=== PATIENT | male | born 1980 | race Caucasian/White ===

== ENCOUNTER 2019-03-15 07:16 | Inpatient (IN) ==
--- NOTE | 2019-02-04 11:58 | Anesthesiology Consultation ---
Date of Service February 04, 2019 Assessment & Plan (1) Encounter for pre-operative examination: PCP Clearance 02/01 = "At his baseline, has good exercise capacity. No further cardiac workup is necessary before surgery on February 11." Pt prescribed Prednisone and Z pac for "reactive airway disease with wheezing" (pre-op CXR showed no active disease) *POSSIBLE DIFFICULT INTUBATION BASED ON EXAM--SMALL ORAL OPENING, MALLAMPATI IV* Chart Review Chart Review: Acceptable Risk for Surgery and Patient seen in Pre Admission Testing Teaching & Discussion Instructed NPO after midnight before surgery, except medications with 15 cc of water. Medication instructions provided according to the PAT guidelines. History Surgery Operation Date: 02/11/19 12:15 Proposed Procedures p L5-S1 Decompression and Fusion, Spinal Cord Monitoring - Timur Mathew DO Height/Weight Height: 5 ft 8 in Weight: 103.5 kg Allergies Allergy/AdvReac Type Severity Reaction Status Date / Time haloperidol [From Haldol] Allergy Severe TONGUE Verified 01/31/19 13:16 SWELLING paliperidone [From Invega] Allergy Severe TONGUE Verified 01/31/19 13:16 SWELLING/INVOLUNTARY MOVEMENTS Medications Home Medications Medication Instructions Recorded Confirmed Last Taken Cbd Oil 1,500 mg PO QAM 01/31/19 01/31/19 Unknown atorvastatin 10 mg PO QAM 01/31/19 01/31/19 Unknown baclofen 15 mg PO BID 01/31/19 01/31/19 Unknown cetirizine [Zyrtec] 10 mg PO QAM 01/31/19 01/31/19 Unknown clozapine 50 mg PO BID 01/31/19 01/31/19 Unknown clozapine 300 mg PO HS 01/31/19 01/31/19 Unknown gabapentin 200 mg PO BID 01/31/19 01/31/19 Unknown gabapentin 300 mg PO HS 01/31/19 01/31/19 Unknown hydroxyzine HCl 25 mg PO BID 01/31/19 01/31/19 Unknown melatonin 3 mg PO HS 01/31/19 01/31/19 Unknown metoclopramide HCl 5 mg PO TID 01/31/19 01/31/19 Unknown metoprolol succinate 25 mg PO QAM 01/31/19 01/31/19 Unknown nortriptyline 20 mg PO HS 01/31/19 01/31/19 Unknown omeprazole 40 mg PO BID 01/31/19 01/31/19 Unknown paroxetine HCl 30 mg PO QAM 01/31/19 01/31/19 Unknown trazodone 50 mg PO HS 01/31/19 01/31/19 Unknown Past Medical History Medical History Anxiety Depression GERD (gastroesophageal reflux disease) Hyperlipidemia Hypertension Inappropriate sinus tachycardia On Metoprolol Insomnia Obesity Peripheral neuropathy Schizoaffective disorder, bipolar type Sleep apnea Noncompliant with CPAP 2/2 claustrophobia Exercise / Class Metabolic Activity III < 4 Walking/Shop/Light housework (Denies CP or SOB with ambulation.) Past Family History Family History Grandmother (Paternal) Family history of diabetes mellitus Past Surgical History Surgical History History of carpal tunnel release RT/LEFT History of colonoscopy History of esophagogastroduodenoscopy (EGD) History of tonsillectomy History of tooth extraction Hx of hemorrhoidectomy Past Anesthesia History No Hx of Anesthesia Complications and No Family Hx of Anesthesia Complications History of PONV No Hx of PONV and Hx of Motion Sickness Social History Smoking Status: Former smoker tobacco type: cigarettes Do You Dip or Chew Tobacco: No Smoking End Date: 7 YEARS AGO Hx Alcohol Use: No Hx Substance Use: No substance use type: does not use Review of Systems Pt denies any recent chest pain, shortness of breath, palpitations, fever. +cough/URI, currently on antibiotic and steroid taper for this from PCP. Physical Exam Vital Signs BP: 101/70 P: 108 bpm SPO2: 95% RA T: 97.5 F R: 20 Constitutional Consistent with schizoaffective diagnosis. ENMT Mouth: + chipped teeth and + small oral opening; no dental restorations and no loose teeth Thyromental Distance: > or= 3.5 Finger Breadths (4) Mallampati Class: IV Neck normal visual inspection and + facial hair (short meza and mustache, pt advised to keep trimmed away from mouth); neck extension not limited Respiratory normal respiratory effort Auscultation: lungs clear to auscultation bilaterally Cardiovascular Rate/Rhythm: regular rhythm and + tachycardic Heart Sounds: no murmur Extremities: no edema Testing Laboratory Results 02/04/19 11:45 02/04/19 11:44 02/04/19 02/04/19 02/04/19 11:45 11:45 Unknown PT 9.8 INR 1.0 APTT 23.7 Urine Color Yellow Urine Appearance Clear Urine pH 6.0 Ur Specific [place] 1.020 Urine Protein Negative Urine Glucose (UA) Negative Urine Ketones Negative Urine Nitrite Negative Ur Leukocyte Esterase Negative Blood Type A Negative Antibody Screen NEGATIVE Electrocardiogram Date: 10/14/18 Findings: + ST @ (103) Otherwise normal EKG. Chest X-Ray Date: 02/04/19 Cardiomediastinal and hilar silhouettes are within normal limits. Minimal linear right perihilar and left basilar opacities. No pneumothorax, pleural effusion or overt pulmonary edema. Mild convex left curvature of the mid to lower thoracic spine. IMPRESSION: 1. No acute process. 2. Minimal right perihilar and left basilar opacities suggest atelectasis /scarring. Echocardiogram Date: 10/04/17 EF: 68% Examination is adequate to evaluate the referral indication. Left ventricular cavity size is normal. LV wall thickness is normal. Right ventricular cavity is normal in size and function. Left atrium is normal size. Left ventricular diastolic function is normal. No significant valvular disease. No pericardial effusion.
[2019-02-04 11:59] LABS: Basophils # (auto) 0.02 K/uL (0-0.2); Basophils % (auto) 0.3 %; Hematocrit (blood only) 39.8 % (42-52); Hemoglobin 13.9 g/dL (14.0-18.0); Immature Granulocytes # (auto) 0.04 K/uL (0.00-0.02); Immature Granulocytes % (auto) 0.5 %; Lymphocytes # (auto) 1.87 K/uL (1.2-3.4); Lymphocytes % (auto) 24.8 %; Mean Corpuscular Hgb Conc 34.9 g/dL (32-36); Mean Corpuscular Volume 84.7 fL (80-100); Mean Platelet Volume 11.8 fL (7.4-10.4); Monocytes # (auto) 0.54 K/uL (0.11-0.59); Monocytes % (auto) 7.2 %; Neutrophils # (auto) 5.08 K/uL (1.4-6.5); Neutrophils % (auto) 67.2 %; Platelet Count 192 K/uL (130-400); RDW Coefficient of Variation 12.7 % (11.5-14.5); White Blood Count 7.55 K/uL (4.8-10.8)
--- NOTE | 2019-02-04 12:01 | PAT Medication Instructions ---
Medication Instructions Date of Service February 04, 2019 Home Medications Cbd Oil 1,500 mg PO QAM atorvastatin 10 mg PO QAM baclofen 15 mg PO BID cetirizine [Zyrtec] 10 mg PO QAM clozapine 50 mg PO BID clozapine 300 mg PO HS gabapentin 200 mg PO BID gabapentin 300 mg PO HS hydroxyzine HCl 25 mg PO BID melatonin 3 mg PO HS metoclopramide HCl 5 mg PO TID metoprolol succinate 25 mg PO QAM nortriptyline 20 mg PO HS omeprazole 40 mg PO BID paroxetine HCl 30 mg PO QAM trazodone 50 mg PO HS DO NOT take the morning of surgery Cbd Oil 1,500 mg PO QAM baclofen 15 mg PO BID cetirizine [Zyrtec] 10 mg PO QAM metoclopramide HCl 5 mg PO TID Take morning of surgery With a small sip of water, OTHERWISE NOTHING TO EAT OR DRINK AFTER MIDNIGHT: atorvastatin 10 mg PO QAM clozapine 50 mg PO BID gabapentin 200 mg PO BID hydroxyzine HCl 25 mg PO BID metoprolol succinate 25 mg PO QAM omeprazole 40 mg PO BID paroxetine HCl 30 mg PO QAM Take evening before surgery baclofen 15 mg PO BID clozapine 50 mg PO BID clozapine 300 mg PO HS gabapentin 200 mg PO BID gabapentin 300 mg PO HS hydroxyzine HCl 25 mg PO BID melatonin 3 mg PO HS metoclopramide HCl 5 mg PO TID nortriptyline 20 mg PO HS omeprazole 40 mg PO BID trazodone 50 mg PO HS Other Notes If you have any questions please call us at [phone] or [phone] or [phone] or [phone]
[2019-02-04 12:14] LABS: Partial Thromboplastin Ratio 0.9; Partial Thromboplastin Time 23.7 Seconds (21.0-31.0); Prothrombin Time 9.8 Seconds (9.0-12.0)
--- NOTE | 2019-02-04 12:32 | XRay Report ---
XR chest Pre-admission PA/Lat HISTORY: 38 years-old Male pat preoperative exam. No acute chest complaints COMPARISON: None available TECHNIQUE: PA and lateral views of the chest FINDINGS: Cardiomediastinal and hilar silhouettes are within normal limits. Minimal linear right perihilar and left basilar opacities. No pneumothorax, pleural effusion or overt pulmonary edema. Mild convex left curvature of the mid to lower thoracic spine. IMPRESSION: 1. No acute process. 2. Minimal right perihilar and left basilar opacities suggest atelectasis/scarring. The above report was generated using voice recognition software. It may contain grammatical, syntax o r spelling errors. Electronically signed by: Pranav Clifton M.D. 02/04/2019 12:30 PM
[2019-02-04 14:40] LABS: Appearance Urine Clear (Clear); Bilirubin Urine Negative (Negative); Blood Urine Negative (Negative); Color Urine Yellow; Glucose Urine UA Negative (Negative); Ketones Urine Negative (Negative); Leukocyte Esterase Urine Negative (Negative); Nitrite Urine Negative (Negative); Protein Urine Negative (Negative); Urobilinogen Urine Negative (Negative)
[2019-02-04 14:42] LABS: BUN Creatinine Ratio 10.3 (10-20); Calcium 8.7 mg/dl (8.5-10.1); Creatinine Clr Calc Pharmacy 88.1 ml/min; Est GFR (African American) 79.1; Est GFR (Non-African American) 68.3; Potassium 3.6 mmol/L (3.5-5.1)
[~2019-03-15 07:16] MED LIST: ACETAMINOPHEN 500 MG TAB PO SCH; ATROPINE SULFATE 0.1 MG/ML 10ML SYR IV PRN; CEFAZOLIN 1000MG 1,000 MG/7.5 ML SYR IV SCH; CEFAZOLIN 2000MG 2,000 MG/15 ML SYR IV SCH; CeleBREX 200 MG CAP PO SCH; GABAPENTIN 300 MG x 3 PO SCH; GABAPENTIN 600 MG DOSE PO SCH; LR 15ML/HR IV SCH; ONDANSETRON INJ 2 MG/ML 2 ML VIAL IV PRN; ePHEDrine sulfate 50 MG/ML AMP IV PRN
[2019-03-15] MEDS ORDERED: PROPOFOL IV EMULSION 10 MG/ML 20 ML VIAL IV ONE (08:26)
[2019-03-15] MEDS ORDERED: DEXAMETHASONE SOD INJ 4 MG/ML VIAL ONE (08:26)
[2019-03-15] MEDS ORDERED: ONDANSETRON INJ 2 MG/ML 2 ML VIAL ONE (08:26)
[2019-03-15] MEDS ORDERED: MIDAZOLAM HCL 1 MG/ML 2ML VIAL ONE (08:26)
[2019-03-15] MEDS ORDERED: NEOSTIGMINE METHYLSULFATE 1 MG/ML 10ML VIAL ONE (08:26)
[2019-03-15] MEDS ORDERED: HYDROmorphone INJ 2 MG/ML SYR/VIAL ONE (08:26)
[2019-03-15] MEDS ORDERED: fentaNYL citrate 100 MCG/2 ML VIAL ONE (08:26)
[2019-03-15] MEDS ORDERED: ROCURONIUM BROMIDE 10 MG/ML 5 ML VIAL ONE (08:26)
[2019-03-15] MEDS ORDERED: GLYCOPYRROLATE 0.2 MG/ML VIAL ONE (08:26)
[2019-03-15] MEDS ORDERED: LIDOCAINE HCL 2% 2 ML VIAL/AMP(20MG/ML) INFIL ONE (08:26)
--- NOTE | 2019-03-15 09:11 | History & Physical Bridge Note ---
Date of Service March 15, 2019 History & Physical Bridge Note I have examined the patient, reviewed the History & Physical and in the interval since the performance of the History & Physical I have noted the following changes of clinical significance: no changes noted
--- NOTE | 2019-03-15 09:16 | History & Physical Report ---
Date of Service March 15, 2019 Assessment & Plan (1) Spinal stenosis, lumbar region with neurogenic claudication: L5-S1 decompression and fusion Present on Admission?: Yes History of Present Illness Chief Complaint: Back and leg pain Primary Care Provider: Dangelo Felix MD Is a 38-year-old male who presents with chronic persistent back and leg pain after failing extensive course of nonoperative care is here for surgical intervention. Allergies Allergy/AdvReac Type Severity Reaction Status Date / Time haloperidol [From Haldol] Allergy Severe TONGUE Verified 03/15/19 07:57 SWELLING paliperidone [From Invega] Allergy Severe TONGUE Verified 03/15/19 07:57 SWELLING/INVOLUNTARY MOVEMENTS Home Medications Home Medications Medication Instructions Recorded Confirmed Type Cbd Oil 1,500 mg PO QAM 01/31/19 03/15/19 History atorvastatin 10 mg PO QAM 01/31/19 03/15/19 History baclofen 15 mg PO BID 01/31/19 03/15/19 History cetirizine [Zyrtec] 10 mg PO QAM 01/31/19 03/15/19 History clozapine 50 mg PO BID 01/31/19 03/15/19 History clozapine 300 mg PO HS 01/31/19 03/15/19 History gabapentin 200 mg PO BID 01/31/19 03/15/19 History gabapentin 300 mg PO HS 01/31/19 03/15/19 History hydroxyzine HCl 25 mg PO BID 01/31/19 03/15/19 History melatonin 3 mg PO HS 01/31/19 03/15/19 History metoclopramide HCl 5 mg PO TID 01/31/19 03/15/19 History metoprolol succinate 25 mg PO QAM 01/31/19 03/15/19 History nortriptyline 20 mg PO HS 01/31/19 03/15/19 History omeprazole 40 mg PO BID 01/31/19 03/15/19 History paroxetine HCl 30 mg PO QAM 01/31/19 03/15/19 History trazodone 50 mg PO HS 01/31/19 03/15/19 History Past Med/Surg History Medical History Anxiety Depression GERD (gastroesophageal reflux disease) Hyperlipidemia Hypertension Inappropriate sinus tachycardia On Metoprolol Insomnia Obesity Peripheral neuropathy Schizoaffective disorder, bipolar type Sleep apnea Noncompliant with CPAP 2/2 claustrophobia Surgical History History of carpal tunnel release RT/LEFT History of colonoscopy History of esophagogastroduodenoscopy (EGD) History of tonsillectomy History of tooth extraction Hx of hemorrhoidectomy Family History Grandmother (Paternal) Family history of diabetes mellitus Social History Preferred Language: Georgian Communication Ability: Effective Php Consultant Required: No Beliefs That Will Affect Care: None Current Living Situation: Significant Other Other Information That Helps Us Care for You: No Feels Safe at Home: Yes Safety Concerns: Feels Safe At This Time Smoking Status: Former smoker Tobacco Type: cigarettes Do You Dip or Chew Tobacco: No Smoking End Date: 7 YEARS AGO Second Hand Exposure: No Tobacco Cessation Education Requested by Patient: No Hx Alcohol Use: No Hx Substance Use: No Physical Exam Physical Exam: Patient is alert and oriented neurologically intact. Results & Data Vital Signs (Past 12 Hours) Vital Signs Temp Pulse Resp BP Pulse Ox 03/15/19 08:05 36.8 C 96 H 20 137/92 99
[2019-03-15] MEDS ORDERED: BUPIVACAINE/EPINEPHRINE 0.5% MPF 1:200,000 30 ML VIAL ONE (09:42)
[2019-03-15] MEDS ORDERED: BACITRACIN INJ 50,000 UNIT VIAL ONE (09:43)
[2019-03-15] MEDS ORDERED: FLOSEAL HEMOSTATIC MATRIX 10ML TOP ONE (11:31)
--- NOTE | 2019-03-15 11:34 | Operative Report ---
Post Operative Report Pre & Post Diagnosis Operation Date: 03/15/19 09:55 Pre-Op Diagnosis: Spinal stenosis, lumbar region with neurogenic claudication Post-Op Diagnosis: Spinal stenosis, lumbar region with neurogenic claudication Procedure Operation Date: 03/15/19 09:55 Actual Procedures #1 lumbar decompression medial facetectomies foraminotomies bilaterally at L5- S1. #2 posterior spinal fusion L5-S1 per #3 placement posterior instrumentation L5-S1. #4 interbody fusion L5-S1. #5 placement of peek cage 10 x 26 mm at L5- S1 per #6 placement of local autograft in the posterior lateral gutters. #7 placement infuse collagen sponge combined with master graft in the posterior lateral gutters and ostial amp in the interbody space. Surgeon Timur Mathew, DO Velvet Steamer Eric Parada Estimated Blood Loss 100 Findings See Below Patient is 5 foot 8 inches tall 102 kg with a BMI of 34. The patient's body habitus created significant technical difficulty throughout the procedure adding at least 40% increase in operative time. Specimens None Indications Patient presents with chronic persistent back and leg pain after failing extensive course of nonoperative care he like to undergo the above-mentioned procedure. Description of Procedure Patient was met with identified and informed consent obtained. He was then taken to the operative suite underwent ablation placed in a prone position the Yomi table on top of the Sundeep frame. All bony prominences well-padded eyes inspected to ensure no external pressure placed upon the peer at this point the lumbar spine was prepped and draped in the normal sterile fashion. Sharp dissection with the assistance of Bovie cautery was performed down to and exposing the lamina and transverse process of L5 and the sacral ala bilaterally. From a caudal to cephalad fashion complete laminectomy of L5 was performed including bilateral medial facetectomies foraminotomies. Pedicle screws were then placed in L5 and S1 levels bilaterally with assistance of fluoroscopy and the appropriate size ezequiel placed. Through a transforaminal portion left complete discectomy was performed in plate graded to subcortical bleeding bone and a 10 x 26 mm peek cage filled with ostium bone graft tapped in position. Rods and then locked in final position bilaterally. The transverse processes of L5 and sacral ala bur to subcortical bleeding bone. Infuse collagen sponge mass graft local autograft placed in the posterior lateral gutters. 15 round MILA drain inserted. The incision was then closed with 1 Vicryl in the fascia 2-0 Vicryl subcutaneously and 4 Monocryl for final skin closure. Steri-Strip sterile dressings placed. Patient will continue PACU stable disc. Please note Eric Parada present throughout the entire procedure involved in patient positioning complex portions of the surgery and final skin closure. Lastly spinal cord monitoring was utilized that procedure no changes noted. I attest to the content of the Intraoperative Record and any orders documented therein. Any exceptions are noted below.
--- NOTE | 2019-03-15 11:35 | Fluoroscopy Report ---
FL lumbar spine 2-3V CLINICAL HISTORY: L5-S1 decompression and fusion. COMPARISON STUDY: None. FLUOROSCOPY TIME: 18 seconds. FLUOROSCOPIC IMAGES: 2. FINDINGS: These images demonstrate an L5-S1 discectomy with interbody spacer placement. There is a po sterior decompression with bilateral pedicle screws at the L5 and S1 levels. Interconnecting rods are present. IMPRESSION: Expected findings following L5-S1 discectomy, posterior decompression and bilateral pedi molly screw fusion. Electronically signed by: Mario Fitzgerald M.D. 03/15/2019 11:33 AM
[2019-03-15] MEDS: fentaNYL citrate 100 MCG/2 ML VIAL IV PRN ×4 (12:19→12:34)
[2019-03-15] MEDS ORDERED: HYDROmorphone INJ 1 MG/ML SYRINGE ONE (12:38)
[2019-03-15] MEDS ORDERED: HYDROmorphone INJ 0.5 MG/0.5 ML SYR IV PRN ×2 (12:45→13:39)
--- NOTE | 2019-03-15 13:35 | Anesthesiology Progress Note ---
Date of Service March 15, 2019 Anesthesia Post Procedure Vital Signs Vital Signs: Temp Pulse Resp BP Pulse Ox 03/15/19 13:00 36.3 C L 106 H 12 133/93 94 03/15/19 12:50 104 H 16 140/96 95 03/15/19 12:40 104 H 16 136/104 H 95 03/15/19 12:30 110 H 16 146/100 H 94 03/15/19 12:20 104 H 15 133/98 98 03/15/19 12:10 104 H 12 130/85 99 03/15/19 12:00 98 H 15 137/84 96 03/15/19 11:52 36.4 C L 102 H 16 131/89 96 03/15/19 08:05 36.8 C 96 H 20 137/92 99 Pain Intensity Lower Back: Pain Intensity: 6 Transfer of Care Handoff Completed per policy Notes Mental Status: alert / awake / arousable and participated in evaluation Patient Amnestic to Procedure: Yes Nausea / Vomiting: adequately controlled Pain: adequately controlled Airway Patency, RR, SpO2: stable & adequate BP & HR: stable & adequate Hydration State: stable & adequate Anesthetic Complications: no major complications apparent and Pt Satisfied with anesthetic care
[2019-03-15] MEDS ORDERED: LORazepam 0.5 MG/1 ML VIAL IV PRN (13:39)
[2019-03-15] MEDS ORDERED: ACETAMINOPHEN 500 MG TAB PO PRN (13:39)
[2019-03-15] MEDS ORDERED: ONDANSETRON INJ 2 MG/ML 2 ML VIAL IV PRN (13:39)
[2019-03-15] MEDS ORDERED: ACETAMINOPHEN 1,000 MG/100 ML VIAL IV PRN (13:39)
[2019-03-15] MEDS ORDERED: DO NOT ADMINISTER FLU VACCINE PRN (13:39)
[2019-03-15] MEDS ORDERED: METOCLOPRAMIDE HCL INJ 5 MG/ML 2 ML VIAL IV PRN (13:39)
[2019-03-15] MEDS ORDERED: BISACODYL 10 MG SUPP PR PRN (13:39)
[2019-03-15] MEDS ORDERED: PROMETHAZINE HCL 12.5 MG in SODIUM CHLORIDE 0.9% 50 ML IV PRN (13:39)
[2019-03-15] MEDS ORDERED: DO NOT ADMINISTER PNEUMOCOCCAL VACCINE PRN (13:39)
[2019-03-15] MEDS ORDERED: FAMOTIDINE 20 MG TAB PO PRN (13:39)
[2019-03-15] MEDS ORDERED: SOD PHOSPHATE/SOD BIPHOSPHATE ENEMA 132 ML BTL PR PRN (13:39)
[2019-03-15] MEDS ORDERED: MAGNESIUM HYDROXIDE SUSP 30 ML UDC PO PRN (13:39)
[2019-03-15] MEDS ORDERED: ONDANSETRON 4 MG TAB PO PRN (13:39)
[2019-03-15] MEDS ORDERED: LORazepam 0.5 MG TAB PO PRN (13:39)
[2019-03-15] MEDS ORDERED: ALUMINUM/MAGNESIUM SUSP 30 ML UDC PO PRN (13:39)
[2019-03-15] MEDS: LACTATED RINGER'S 1,000 ML IV SCH ×2 (15:01→21:34)
[2019-03-15] MEDS: GABAPENTIN 100 MG CAP PO SCH (15:03)
[2019-03-15] MEDS: KETOROLAC 30 MG/ML VIAL IV SCH ×2 (15:04→21:44)
[2019-03-15] MEDS: METOCLOPRAMIDE HCL 5 MG TABLET PO SCH ×2 (15:04→21:43)
--- NOTE | 2019-03-15 15:56 | Consultation ---
Date of Consultation March 15, 2019 Assessment & Plan (1) Spinal stenosis, lumbar region with neurogenic claudication: S/P Lumbar Decompression and Fusion L5-S1 POD #0, by Dr. Mathew tolerated procedure well EBL 100 ml pain/wound per ortho therapy and activity as directed by ortho incentive spirometry encouraged follow H/H (2) Hyperlipidemia: Continue statin (3) Inappropriate sinus tachycardia: Continue metoprolol, remains in sinus tach (4) Schizoaffective disorder, bipolar type: Mood is stable Continue Clozaril, Paxil, nortriptyline wbc wnl (5) Insomnia: continue trazodone (6) GERD (gastroesophageal reflux disease): Continue PPI (7) DVT prophylaxis: SCDS/TEDS, per ortho Disposition: Per attending Follow up: PCP Dr. Felix Patient was seen and examined in collaboration with Dr. Jacobson, please see add endum Thank you for this consultation. We will follow the patient with you during their hospital stay. You can reach a member of the [facility] Team 27/03 via pager @ [phone]. Supervising Physician Co-Signing Physician Notes Patient was seen and evaluated with Lev[facility]. Patient is complaining of back pain, but tolerable. Denies any fever, chills per Exam Generalawake, alert, oriented x2, not in acute distress Lungsclear, no wheezing, rhonchi HeartS1-S2 normal Backstatus post surgery with drain present Extremitiesno edema Assessment/plan Status post lumbar decompression and fusion L5-S1 Indicationspinal stenosis, lumbar region with neurogenic claudication Postoperative day 0 Pain/wound management per Ortho PT/OT per Ortho H&H monitoring Incentive spirometry encouraged Hyperlipidemia Continue statin Inappropriate sinus tachycardia Continue metoprolol Schizoaffective disorder, bipolar Continue Clozaril, Paxil, nortriptyline Insomnia Continue trazodone GERD Continue with PPI DVT prophylaxis SCD/teds Per Ortho Disposition Per primary team Agree with management and plan of Levar History of Present Illness Requesting Physician: Dr. Mathew Reason for Consultation: Postop medical management Attending Physician: Timur Mathew DO History of Present Illness This is a 38-year-old male who has a known history of schizoaffective disorder, HLD, inapprop sinus tachycardia, obesity, history of cannabis and alcohol use, fatty liver disease, DANNY noncompliant with CPAP, insomnia,who presents to [facility] for elective lumbar procedure. His GF and father are at bedside. Patient has chronic low back pain with radiculopathy which he failed nonoperative outpatient treatment. He underwent lumbar decompression fusion L5-S1 by Dr. Mathew. Tolerated procedure well and offers no acute concerns except for mild incisional low back pain. Denies any radicular pain or numbness or tingling. Denies any fever, chills, sweats, chest pain, shortness of breath, postop nausea or vomiting, abdominal pain. Denies any change in bowel or urinary habits prior to procedure. Allergies Allergy/AdvReac Type Severity Reaction Status Date / Time haloperidol [From Haldol] Allergy Severe TONGUE Verified 03/15/19 07:57 SWELLING paliperidone [From Invega] Allergy Severe TONGUE Verified 03/15/19 07:57 SWELLING/INVOLUNTARY MOVEMENTS Home Medications Home Medications Medication Instructions Recorded Confirmed Type Cbd Oil 1,500 mg PO QAM 01/31/19 03/15/19 History atorvastatin 10 mg PO QAM 01/31/19 03/15/19 History baclofen 15 mg PO BID 01/31/19 03/15/19 History cetirizine [Zyrtec] 10 mg PO QAM 01/31/19 03/15/19 History clozapine 50 mg PO BID 01/31/19 03/15/19 History clozapine 300 mg PO HS 01/31/19 03/15/19 History gabapentin 200 mg PO BID 01/31/19 03/15/19 History gabapentin 300 mg PO HS 01/31/19 03/15/19 History hydroxyzine HCl 50 mg PO TID 01/31/19 03/15/19 History melatonin 3 mg PO HS 01/31/19 03/15/19 History metoclopramide HCl 5 mg PO TID 01/31/19 03/15/19 History metoprolol succinate 25 mg PO QAM 01/31/19 03/15/19 History nortriptyline 20 mg PO HS 01/31/19 03/15/19 History omeprazole 40 mg PO BID 01/31/19 03/15/19 History paroxetine HCl 30 mg PO QAM 01/31/19 03/15/19 History trazodone 100 mg PO HS 01/31/19 03/15/19 History dicyclomine 10 mg PO BID 03/15/19 03/15/19 History Patient History Family History Grandmother (Paternal) Family history of diabetes mellitus Social History Preferred Language: [place] Citizen Communication Ability: Effective It Program Manager Required: No Beliefs That Will Affect Care: None Current Living Situation: Significant Other Other Information That Helps Us Care for You: No Feels Safe at Home: Yes Safety Concerns: Feels Safe At This Time Smoking Status: Former smoker Tobacco Type: cigarettes Do You Dip or Chew Tobacco: No Smoking End Date: 7 YEARS AGO Second Hand Exposure: No Tobacco Cessation Education Requested by Patient: No Hx Alcohol Use: No Hx Substance Use: No Review of Systems Review of Systems: As noted per HPI, 10 systems reviewed and negative unless noted above. Physical Exam Physical Exam: Gen: WD/WN, M, NAD, sitting up in bed, pleasant, conversing easily Head: Normocephalic, Atraumatic Eyes: Sclera normal, no conjunctival injection, PERRLA, EOMI ENT: Gross hearing intact, normal pharynx, mucous membranes moist Neck: supple, no adenopathy, No JVD, no bruit, Resp: Clear to auscultation b/l, no wheeze, rales, rhonchi. Normal insp/exp effort, no accessory muscle use CV: regular rate, regular rhythm, no murmur, rub, gallop, or ectopy Abd: +BS x 4, soft, nontender, nondistended Musculoskeletal: moves extremities active rom x 4, strength intact, good water chemist strength, Lumbar dressing CDI, MILA drain with serosanginous drainage Extremities: No edema bilaterally Skin: warm, moist, no rash, negative turgor, cap refill < 2sec Neuro: Alert and oriented x 3, speech normal, good mood/affect, cran nerve 2-12 intact grossly : deferred Results & Data Vital Signs (Past 12 Hours) Vital Signs Temp Pulse Pulse Resp BP Pulse Ox 03/15/19 15:20 36.8 C 110 H 18 134/93 94 03/15/19 14:26 37.1 C 114 H 16 129/106 H 94 03/15/19 13:48 37 C 111 H 16 129/87 96 03/15/19 13:00 36.3 C L 106 H 12 133/93 94 03/15/19 12:50 104 H 16 140/96 95 03/15/19 12:40 104 H 16 136/104 H 95 03/15/19 12:30 110 H 16 146/100 H 94 03/15/19 12:20 104 H 15 133/98 98 03/15/19 12:10 104 H 12 130/85 99 03/15/19 12:00 98 H 15 137/84 96 03/15/19 11:52 36.4 C L 102 H 16 131/89 96 03/15/19 08:05 36.8 C 96 H 20 137/92 99 Laboratory Results Preop lab work CBC: WBC 7.53, hemoglobin at 13.9, hematocrit 39.8, platelet 192 BMP: Sodium 140, K3.6, chloride 106, CO2 29, BUN 13, creatinine 1.30, gluc 110 Diagnostic Findings CXR: IMPRESSION: 1. No acute process. 2. Minimal right perihilar and left basilar opacities suggest atelectasis/s carring. Medications Administered Gabapentin (Neurontin) 200 mg PO 0900,1500 [facility] Stop: 04/14/19 14:59 Last Admin: 03/15/19 15:03 Dose: 200 mg Documented by: [id number] Lactated Ringer's (Lr) 1,000 mls @ 150 mls/hr IV .Q6H40M [facility] Stop: 04/14/19 13:38 Last Admin: 03/15/19 15:01 Dose: 150 mls/hr Documented by: [id number] Ketorolac Tromethamine (Toradol) 30 mg IV Q6H [facility] Stop: 03/16/19 09:01 Last Admin: 03/15/19 15:04 Dose: 30 mg Documented by: [id number] Metoclopramide HCl (Reglan) 5 mg PO TID [facility] Stop: 04/14/19 13:59 Last Admin: 03/15/19 15:04 Dose: 5 mg Documented by: [id number] Discontinued Medications Acetaminophen (Tylenol) 1,000 mg PO PREOP [facility] Stop: 03/15/19 18:00 Last Admin: 03/15/19 08:35 Dose: 1,000 mg Documented by: [id number] Bacitracin (Bacitracin) Confirm Administered Dose 50,000 units .ROUTE .STK-MED ONE Stop: 03/15/19 09:44 Last Admin: 03/15/19 10:58 Dose: 50,000 units Documented by: [id number] Bupivacaine HCl/Epinephrine Bitart (Sensorcaine/Epinephrine 0.5% Mpf 1:200,000) Confirm Administered Dose 30 ml .ROUTE .STK-MED ONE Stop: 03/15/19 09:43 Last Admin: 03/15/19 10:58 Dose: 20 ml Documented by: [id number] Celecoxib (Celebrex) 200 mg PO PREOP [facility] Stop: 03/15/19 18:00 Last Admin: 03/15/19 08:35 Dose: 200 mg Documented by: [id number] Fentanyl Citrate (Fentanyl Citrate) 25 mcg IV Q5M PRN PRN Reason: PACU Use Only-Pain Stop: 03/15/19 18:00 Last Admin: 03/15/19 12:34 Dose: 25 mcg Documented by: [id number] Admin: 03/15/19 12:29 Dose: 25 mcg Documented by: [id number] Admin: 03/15/19 12:24 Dose: 25 mcg Documented by: [id number] Admin: 03/15/19 12:19 Dose: 25 mcg Documented by: [id number] Gabapentin (Neurontin) 600 mg PO PREOP [facility] Stop: 03/15/19 18:00 Last Admin: 03/15/19 08:35 Dose: 600 mg Documented by: [id number] Hydromorphone HCl (Dilaudid) Confirm Administered Dose 2 mg .ROUTE .STK-MED ONE Stop: 03/15/19 12:39 Last Increment: 03/15/19 12:54 Dose: 0.5 mg Documented by: [id number] Increment: 03/15/19 12:49 Dose: 0.5 mg Documented by: [id number] Increment: 03/15/19 12:44 Dose: 0.5 mg Documented by: [id number] Increment: 03/15/19 12:39 Dose: 0.5 mg Documented by: [id number] Lactated Ringer's (Lr) 1,000 mls @ 15 mls/hr IV .Q24H [facility] Stop: 03/16/19 05:59 Last Infusion: 03/15/19 09:52 Dose: 0 mls/hr Documented by: [id number] Admin: 03/15/19 08:45 Dose: 15 mls/hr Documented by: [id number] Cefazolin Sodium (Ancef 2000mg) 2,000 mg in 15 mls @ 3.75 mls/min IV PREOP [facility] Stop: 03/15/19 18:00 Last Admin: 03/15/19 09:51 Dose: 3.75 mls/min Documented by: [id number] Miscellaneous (Floseal Hemostatic Matrix 10ml) 10 ml TOP ONCE ONE Stop: 03/15/19 11:32 Last Admin: 03/15/19 11:32 Dose: 35 ml Documented by: [id number] ECG Rate (beats per minute): 103 Rhythm: sinus tachycardia Additional Comments: QTC 448ms
[2019-03-15 16:01] LABS: Hematocrit (blood only) 39.3 % (42-52); Hemoglobin 13.8 g/dL (14.0-18.0); Mean Corpuscular Hgb Conc 35.1 g/dL (32-36); Mean Corpuscular Volume 85.2 fL (80-100); Mean Platelet Volume 12.2 fL (7.4-10.4); RDW Coefficient of Variation 12.8 % (11.5-14.5); RDW Standard Deviation 39.5 fL (36.4-46.3); Red Blood Count 4.61 M/uL (4.7-6.1); White Blood Count 8.14 K/uL (4.8-10.8)
[2019-03-15 16:04] LABS: Basophils # (auto) 0.01 K/uL (0-0.2); Basophils % (auto) 0.1 %; Immature Granulocytes # (auto) 0.03 K/uL (0.00-0.02); Immature Granulocytes % (auto) 0.4 %; Lymphocytes # (auto) 0.85 K/uL (1.2-3.4); Lymphocytes % (auto) 10.4 %; Monocytes # (auto) 0.19 K/uL (0.11-0.59); Monocytes % (auto) 2.3 %; Neutrophils # (auto) 7.06 K/uL (1.4-6.5); Neutrophils % (auto) 86.8 %; Platelet Count 123 K/uL (130-400); Platelet Estimate Normal (Normal)
[2019-03-15] MEDS: OXYCODONE HCL IR 5 MG TAB (IMMEDIATE RELEASE) PO PRN ×2 (18:00→23:20)
[2019-03-15] MEDS: CEFAZOLIN 2000MG 2,000 MG/15 ML SYR IV SCH (18:00)
[2019-03-15] MEDS ORDERED: TRAZODONE HCL 50 MG TAB PO SCH (21:00)
[2019-03-15] MEDS: cloZAPine 100 MG TAB PO SCH (21:37)
[2019-03-15] MEDS: DICYCLOMINE HCL 10 MG CAP PO SCH (21:37)
[2019-03-15] MEDS: TRAZODONE HCL 100 MG TAB PO SCH (21:38)
[2019-03-15] MEDS: NORTRIPTYLINE HCL 10 MG CAP PO SCH (21:39)
[2019-03-15] MEDS: DOCUSATE SODIUM/SENNA 50/8.6MG TAB PO SCH (21:39)
[2019-03-15] MEDS: GABAPENTIN 300 MG CAP PO SCH (21:39)
[2019-03-15] MEDS: BACLOFEN 10 MG TAB PO SCH (21:42)
[2019-03-15] MEDS: PANTOprazole 40 MG TAB PO SCH (21:43)
[2019-03-16] MEDS: LACTATED RINGER'S 1,000 ML IV SCH (02:13)
[2019-03-16] MEDS: CEFAZOLIN 2000MG 2,000 MG/15 ML SYR IV SCH (02:13)
[2019-03-16] MEDS: KETOROLAC 30 MG/ML VIAL IV SCH ×2 (02:15→08:40)
[2019-03-16 07:04] LABS: Hematocrit (blood only) 34.8 % (42-52); Hemoglobin 12.2 g/dL (14.0-18.0); Mean Corpuscular Hgb Conc 35.1 g/dL (32-36); Mean Corpuscular Volume 83.1 fL (80-100); Platelet Count 129 K/uL (130-400); RDW Coefficient of Variation 12.7 % (11.5-14.5); Red Blood Count 4.19 M/uL (4.7-6.1); White Blood Count 8.21 K/uL (4.8-10.8)
[2019-03-16 07:08] LABS: BUN Creatinine Ratio 10.8 (10-20); Creatinine Clr Calc Pharmacy 84.9 ml/min; Est GFR (African American) 76.3; Est GFR (Non-African American) 65.8; Potassium 4.2 mmol/L (3.5-5.1)
[2019-03-16 07:11] LABS: Basophils # (auto) 0.01 K/uL (0-0.2); Basophils % (auto) 0.1 %; Immature Granulocytes # (auto) 0.02 K/uL (0.00-0.02); Immature Granulocytes % (auto) 0.2 %; Lymphocytes # (auto) 1.59 K/uL (1.2-3.4); Lymphocytes % (auto) 19.4 %; Monocytes # (auto) 0.86 K/uL (0.11-0.59); Monocytes % (auto) 10.5 %; Neutrophils # (auto) 5.73 K/uL (1.4-6.5); Neutrophils % (auto) 69.8 %; Platelet Estimate Decreased (Normal)
[2019-03-16] MEDS: OXYCODONE HCL IR 5 MG TAB (IMMEDIATE RELEASE) PO PRN ×4 (07:17→20:22)
[2019-03-16] MEDS: cloZAPine 25 MG TAB PO SCH ×2 (07:32→13:52)
[2019-03-16] MEDS: METOCLOPRAMIDE HCL 5 MG TABLET PO SCH ×3 (07:33→20:23)
[2019-03-16] MEDS: PANTOprazole 40 MG TAB PO SCH ×2 (07:33→20:23)
[2019-03-16] MEDS: ATORVASTATIN 10 MG TAB PO SCH (07:33)
[2019-03-16] MEDS: METOPROLOL SUCC 25MG EXT REL TAB PO SCH (07:33)
[2019-03-16] MEDS: CETIRIZINE HCL 10 MG TABLET PO SCH (07:33)
[2019-03-16] MEDS: DICYCLOMINE HCL 10 MG CAP PO SCH ×2 (07:33→20:25)
[2019-03-16] MEDS: PARoxetine HCl 20 MG TAB PO SCH (07:33)
[2019-03-16] MEDS: BACLOFEN 10 MG TAB PO SCH ×2 (07:34→20:24)
[2019-03-16] MEDS: GABAPENTIN 100 MG CAP PO SCH ×2 (08:40→15:04)
[2019-03-16] MEDS ORDERED: CBD OIL PO SCH (09:00)
--- NOTE | 2019-03-16 10:06 | Orthopedic Progress Note ---
Date of Service March 16, 2019 Assessment & Plan (1) Spinal stenosis, lumbar region with neurogenic claudication: At this time we will continue physical therapy monitor his MILA output anticipate discharge home Monday or Monday. Present on Admission?: Yes Subjective Patient's back pain is controlled leg symptoms improved. Physical Exam Physical Exam: On exam he is in the chair at the bedside appears comfortable. Results & Data Vital Signs (Past 12 Hours) Vital Signs Temp Pulse Resp BP Pulse Ox 03/16/19 06:44 36.8 C 113 H 18 111/75 93 03/16/19 03:24 36.8 C 110 H 17 113/75 94 03/15/19 23:06 36.7 C 111 H 17 113/79 93
--- NOTE | 2019-03-16 10:59 | Hospitalist Progress Note ---
Date of Service March 16, 2019 Assessment & Plan (1) Spinal stenosis, lumbar region with neurogenic claudication: Assessment/plan Status post lumbar decompression and fusion L5-S1 Indicationspinal stenosis, lumbar region with neurogenic claudication Postoperative day 1 Pain/wound management per Ortho PT/OT per Ortho H&H monitoring- Stable at 12.2 Incentive spirometry encouraged Hyperlipidemia Continue statin Inappropriate sinus tachycardia Continue metoprolol Schizoaffective disorder, bipolar Continue Clozaril, Paxil, nortriptyline Insomnia Continue trazodone GERD Continue with PPI DVT prophylaxis SCD/teds Per Ortho Disposition Per primary team Subjective Patient does complain of some back soreness. Overall doing well. Denies any chest pain, nausea, vomiting, shortness of breath Not on oxygen Physical Exam Physical Exam: Generalawake, alert, oriented x2, not in acute distress Lungsclear, no wheezing, rhonchi HeartS1-S2 normal Backstatus post surgery with drain present Extremitiesno edema Results & Data Vital Signs (Past 12 Hours) Vital Signs Temp Pulse Resp BP Pulse Ox 03/16/19 10:54 36.9 C 108 H 18 105/67 94 03/16/19 06:44 36.8 C 113 H 18 111/75 93 03/16/19 03:24 36.8 C 110 H 17 113/75 94 03/15/19 23:06 36.7 C 111 H 17 113/79 93
[2019-03-16] MEDS: GABAPENTIN 300 MG CAP PO SCH (20:23)
[2019-03-16] MEDS: TRAZODONE HCL 100 MG TAB PO SCH (20:23)
[2019-03-16] MEDS: NORTRIPTYLINE HCL 10 MG CAP PO SCH (20:24)
[2019-03-16] MEDS: DOCUSATE SODIUM/SENNA 50/8.6MG TAB PO SCH (20:25)
[2019-03-16] MEDS: cloZAPine 100 MG TAB PO SCH (20:25)
[2019-03-16] MEDS ORDERED: COUGH DROP (SUGAR FREE) LOZ 24 LOZ/1 BOX BUCCAL ONE (23:30)
[2019-03-17] MEDS: CETIRIZINE HCL 10 MG TABLET PO SCH (07:28)
[2019-03-17] MEDS: OXYCODONE HCL IR 5 MG TAB (IMMEDIATE RELEASE) PO PRN ×3 (07:28→17:25)
[2019-03-17] MEDS: ATORVASTATIN 10 MG TAB PO SCH (07:29)
[2019-03-17] MEDS: DICYCLOMINE HCL 10 MG CAP PO SCH ×2 (07:29→20:04)
[2019-03-17] MEDS: PARoxetine HCl 20 MG TAB PO SCH (07:29)
[2019-03-17] MEDS: cloZAPine 25 MG TAB PO SCH ×2 (07:29→13:21)
[2019-03-17] MEDS: BACLOFEN 10 MG TAB PO SCH ×2 (07:29→20:05)
[2019-03-17] MEDS: METOCLOPRAMIDE HCL 5 MG TABLET PO SCH ×3 (07:30→20:04)
[2019-03-17] MEDS: METOPROLOL SUCC 25MG EXT REL TAB PO SCH (07:30)
[2019-03-17] MEDS: GABAPENTIN 100 MG CAP PO SCH ×2 (07:30→14:47)
[2019-03-17] MEDS: PANTOprazole 40 MG TAB PO SCH ×2 (07:30→20:04)
--- NOTE | 2019-03-17 09:05 | Orthopedic Progress Note ---
Date of Service March 17, 2019 Assessment & Plan (1) Spinal stenosis, lumbar region with neurogenic claudication: This time we will continue physical therapy monitor his MILA output anticipate discharge home tomorrow Present on Admission?: Yes Subjective Back pain is controlled leg pain improved. Physical Exam Physical Exam: Patient is alert and oriented neurologically intact. Results & Data Vital Signs (Past 12 Hours) Vital Signs Temp Pulse Resp BP Pulse Ox 03/17/19 07:32 36.4 C L 104 H 18 119/82 92 03/16/19 23:40 36.8 C 95 H 18 101/68 96
[2019-03-17] MEDS: TRAMADOL HCL 50 MG TABLET PO PRN ×2 (10:17→21:17)
[2019-03-17] MEDS ORDERED: POLYETHYLENE (MIRALAX) 17 GM PACK PO PRN (11:49)
--- NOTE | 2019-03-17 17:41 | Hospitalist Progress Note ---
Date of Service March 17, 2019 Assessment & Plan (1) Spinal stenosis, lumbar region with neurogenic claudication: S/P lumbar decompression and fusion L5-S1 H/O spinal stenosis, lumbar region with neurogenic claudication POD #2 Continue Pain/wound management Activity/DVT Px as per Primary team Constipation: Continue bowel regimen Hyperlipidemia Continue statin Inappropriate sinus tachycardia Continue metoprolol Schizoaffective disorder, bipolar Continue Clozaril, Paxil, nortriptyline Insomnia Continue trazodone GERD Continue pantoprazole 40 mg twice daily DVT Px: As per primary team Disposition Per primary team Subjective Patient is seen and examined at bedside Reports back pain at surgical site Also states having constipation Denies any chest pain, shortness of breath, dizziness Offers no other complaints Review of Systems Review of Systems: All systems reviewed & are unremarkable except as noted in HPI & below Physical Exam Physical Exam: Physical Exam: Vitals signs as noted above General Appearance:Moderately built and nourished, no apparent distress Head: normocephalic, Atraumatic Eyes: normal inspection, EOMI Neck: supple, Trachea midline Respiratory/Chest: Normal breath sounds, CTA Cardiovascular: S1, S2, No murmur Abdomen/GI:Soft, Non tender, Bowel sounds present Back:S/P surgical site in dressing, +drain Extremities/Musculoskelatal:normal inspection Neurologic/Psych:AAOX3, grossly no focal neurological deficits Skin: normal color, warm Results & Data Vital Signs (Past 12 Hours) Vital Signs Temp Pulse Resp BP Pulse Ox 03/17/19 15:37 36.7 C 105 H 18 104/67 94 03/17/19 07:32 36.4 C L 104 H 18 119/82 92
[2019-03-17] MEDS: TRAZODONE HCL 100 MG TAB PO SCH (20:04)
[2019-03-17] MEDS: GABAPENTIN 300 MG CAP PO SCH (20:04)
[2019-03-17] MEDS: DOCUSATE SODIUM/SENNA 50/8.6MG TAB PO SCH (20:04)
[2019-03-17] MEDS: NORTRIPTYLINE HCL 10 MG CAP PO SCH (20:05)
[2019-03-17] MEDS: cloZAPine 100 MG TAB PO SCH (20:06)
[2019-03-18] MEDS: TRAMADOL HCL 50 MG TABLET PO PRN ×5 (06:10→21:37)
--- NOTE | 2019-03-18 07:40 | Anesthesiology Progress Note ---
Date of Service March 18, 2019 Anesthesia Post Procedure Vital Signs Vital Signs: Temp Pulse Pulse Resp BP Pulse Ox 03/18/19 06:46 36.8 C 104 H 18 126/86 93 03/17/19 23:01 36.9 C 102 H 16 114/75 95 03/17/19 15:37 36.7 C 105 H 18 104/67 94 Pain Intensity Lower Back: Pain Intensity: 4 Notes Mental Status: alert / awake / arousable and participated in evaluation Nausea / Vomiting: adequately controlled Pain: adequately controlled Airway Patency, RR, SpO2: stable & adequate BP & HR: stable & adequate Hydration State: stable & adequate Anesthetic Complications: no major complications apparent and Pt Satisfied with anesthetic care
[2019-03-18] MEDS: cloZAPine 25 MG TAB PO SCH ×2 (07:48→13:51)
[2019-03-18] MEDS: DICYCLOMINE HCL 10 MG CAP PO SCH ×2 (07:49→21:24)
[2019-03-18] MEDS: BACLOFEN 10 MG TAB PO SCH ×2 (07:49→21:23)
[2019-03-18] MEDS: ATORVASTATIN 10 MG TAB PO SCH (07:51)
[2019-03-18] MEDS: GABAPENTIN 100 MG CAP PO SCH ×2 (07:51→13:53)
[2019-03-18] MEDS: PARoxetine HCl 20 MG TAB PO SCH (07:52)
[2019-03-18] MEDS: METOPROLOL SUCC 25MG EXT REL TAB PO SCH (07:53)
[2019-03-18] MEDS: METOCLOPRAMIDE HCL 5 MG TABLET PO SCH ×3 (07:53→21:27)
[2019-03-18] MEDS: PANTOprazole 40 MG TAB PO SCH ×2 (07:53→21:25)
[2019-03-18] MEDS: CETIRIZINE HCL 10 MG TABLET PO SCH (07:55)
--- NOTE | 2019-03-18 10:49 | Orthopedic Progress Note ---
Date of Service March 18, 2019 Assessment & Plan (1) Spinal stenosis, lumbar region with neurogenic claudication: At this time we will give him a short course of steroids to help with his soreness continue to encourage ambulation we will discontinue his drain and dressing today. Hopefully discharge home tomorrow. Present on Admission?: Yes Subjective Patient complaining of soreness in his back occasional left leg pain. He is able to ambulate but quite uncomfortable today. Physical Exam Physical Exam: On exam he is neurologically intact. He has some tenderness palpation lumbar musculature. Results & Data Vital Signs (Past 12 Hours) Vital Signs Temp Pulse Pulse Resp BP Pulse Ox 03/18/19 09:02 36.8 C 105 H 104 H 18 126/86 93 03/18/19 06:46 36.8 C 104 H 18 126/86 93 03/17/19 23:01 36.9 C 102 H 16 114/75 95
[2019-03-18] MEDS: DEXAMETHASONE SOD PHOSPHATE 8 MG in SYRINGE 0 ML IV SCH ×2 (13:52→21:29)
--- NOTE | 2019-03-18 16:19 | Hospitalist Progress Note ---
Date of Service March 18, 2019 Assessment & Plan (1) Spinal stenosis, lumbar region with neurogenic claudication: S/P lumbar decompression and fusion L5-S1 H/O spinal stenosis, lumbar region with neurogenic claudication POD #3 Continue Pain/wound management Activity/DVT Px as per Primary team Started on steroid course for ongoing back pain Constipation: Resolved Continue bowel regimen Hyperlipidemia Continue statin Inappropriate sinus tachycardia Continue metoprolol Schizoaffective disorder, bipolar Continue Clozaril, Paxil, nortriptyline Insomnia Continue trazodone GERD Continue pantoprazole 40 mg twice daily DVT Px: As per primary team Disposition Per primary team Encourage to ambulate Subjective Patient is seen and examined at bedside Still has significant back pain and intermittent left leg pain Had bowel movement today Denies any chest pain, shortness of breath, dizziness Offers no other complaints Drain removed today Started on steroid course for ongoing back pain Review of Systems Review of Systems: All systems reviewed & are unremarkable except as noted in HPI & below Physical Exam Physical Exam: Physical Exam: Vitals signs as noted above General Appearance:Moderately built and nourished, no apparent distress Head: normocephalic, Atraumatic Eyes: normal inspection, EOMI Neck: supple, Trachea midline Respiratory/Chest: Normal breath sounds, CTA Cardiovascular: S1, S2, No murmur Abdomen/GI:Soft, Non tender, Bowel sounds present Back:S/P surgery Extremities/Musculoskelatal:normal inspection Neurologic/Psych:AAOX3, grossly no focal neurological deficits Skin: normal color, warm Results & Data Vital Signs (Past 12 Hours) Vital Signs Temp Pulse Pulse Resp BP Pulse Ox 03/18/19 14:44 37.3 C 116 H 15 137/80 94 03/18/19 09:02 36.8 C 105 H 104 H 18 126/86 93 03/18/19 06:46 36.8 C 104 H 18 126/86 93
[2019-03-18] MEDS: GABAPENTIN 300 MG CAP PO SCH (21:24)
[2019-03-18] MEDS: TRAZODONE HCL 100 MG TAB PO SCH (21:25)
[2019-03-18] MEDS: NORTRIPTYLINE HCL 10 MG CAP PO SCH (21:26)
[2019-03-18] MEDS: DOCUSATE SODIUM/SENNA 50/8.6MG TAB PO SCH (21:26)
[2019-03-18] MEDS: cloZAPine 100 MG TAB PO SCH (21:28)
[2019-03-19] MEDS: DEXAMETHASONE SOD PHOSPHATE 8 MG in SYRINGE 0 ML IV SCH (05:34)
[2019-03-19] MEDS: TRAMADOL HCL 50 MG TABLET PO PRN (07:32)
[2019-03-19] MEDS: METOPROLOL SUCC 25MG EXT REL TAB PO SCH (07:33)
[2019-03-19] MEDS: METOCLOPRAMIDE HCL 5 MG TABLET PO SCH (07:33)
[2019-03-19] MEDS: PANTOprazole 40 MG TAB PO SCH (07:33)
[2019-03-19] MEDS: cloZAPine 25 MG TAB PO SCH (07:34)
[2019-03-19] MEDS: PARoxetine HCl 20 MG TAB PO SCH (07:34)
[2019-03-19] MEDS: BACLOFEN 10 MG TAB PO SCH (07:34)
[2019-03-19] MEDS: DICYCLOMINE HCL 10 MG CAP PO SCH (07:34)
[2019-03-19] MEDS: GABAPENTIN 100 MG CAP PO SCH (07:35)
[2019-03-19] MEDS: ATORVASTATIN 10 MG TAB PO SCH (07:35)
[2019-03-19] MEDS: CETIRIZINE HCL 10 MG TABLET PO SCH (07:36)
--- NOTE | 2019-03-19 09:46 | Discharge Summary ---
Date of Service March 19, 2019 Admission HPI Per Admitting Provider Is a 38-year-old male who presents with chronic persistent back and leg pain after failing extensive course of nonoperative care is here for surgical intervention. Principal Diagnosis Lumbar spinal stenosis with neurogenic claudication Discharge Data Allergies Allergy/AdvReac Type Severity Reaction Status Date / Time haloperidol [From Haldol] Allergy Severe TONGUE Verified 03/15/19 07:57 SWELLING paliperidone [From Invega] Allergy Severe TONGUE Verified 03/15/19 07:57 SWELLING/INVOLUNTARY MOVEMENTS Consultations 03/15/19 13:39 Consult Case Management - Discharge Planning Routine Consult Hospitalist Routine Procedures Performed Operation Date: 03/15/19 09:55 Actual Procedures p Decompression and Fusion L5-S1, Spinal Cord Monitoring, Application of Bone Morphogenetic Protien(Not Applicable) - Timur Mathew DO Ordered Studies 03/15/19 09:55 FL fluoroscopy <1hr Routine FL lumbar spine 2-3V Routine Hospital Course (1) Spinal stenosis, lumbar region with neurogenic claudication: Patient underwent lumbar decompression and fusion tolerated this well was taken to the orthopedic floor postoperatively. Postop day #1 he was up and ambulating reasonably well. Progressive post through postop day #2 and 3 struggling with some difficulties with back pain but steadily improving. MILA drain decreasing appropriately. Subsequently discharged home. Discharge orders instructions from the chart for further review. Total Time Total Time Spent Total Time Spent (In Minutes): 20 minutes Discharge Plan Discharge Items Patient Disposition: Home - Self-Care Reason For Visit: LUMBAR SPINAL STENOSIS W/OUT NEUROGENIC CLAUDICATI Discharge Diagnosis: Lumbar spinal stenosis with neurogenic claudication Discharge Goals: Decrease discomfort Activity: Per 'Additional Instructions' section Non-emergency contact: Primary Care Provider Call non-emergency contact if: you have any medication questions Follow-up/Referrals: Dangelo Felix MD [Primary Care Provider] - Diet: Regular Addtl Provider Instructions: ACTIVITY RECOMMENDATIONS: SELF CARE INSTRUCTIONS AFTER THORACIC/LUMBAR FUSIONS 1. You may walk to your tolerance. It is good exercise for your legs and back. Expect some back and intermittent leg aches and pains. 2. You may perform "counter-top" level activities (make a sandwich, anjali with a project, etc.). 3. No bending or lifting of more than 10 pounds or back twisting of any nature (roll like a log when turning in bed). 4. You may ride in a car for 20-30 minutes at a time. No driving until after your first visit with your doctor. 5. Frequent changes of position and restricting sitting to 30 minutes at a time will help limit the amount of back spasms and stiffness you may experience. 6. You may discontinue the use of ambulatory aids (cane, crutches, etc.) once your strength and confidence allow. 7. You may credentialing analyst the shower and let water strike your incision when you arrive home at least once daily. Do not take a tub bath, sit in a hot tub or go into a swimming pool until after your first recheck in the office. SPECIAL CARE INSTRUCTIONS: VERY IMPORTANT TO READ AND REVIEW A. Your surgical incision has been closed with a cosmetic suture under the skin that will dissolve in about 6 weeks. In 14 days, you can use a pair of clean scissors and cut the suture that is left outside of the skin at the ends of your incision. 1. The small skin tapes can be removed 7 days after surgery if they have not fallen off by that point. 2. You may keep the wound open to air as much as possible to promote healing after post-op day number 5 unless told otherwise by your doctor. 3. If you think the wound looks like it is becoming infected (redness or worsening drainage) and/or you are experiencing fever, chill or worsening back pain and muscle spasms, contact the office so that we may evaluate you as soon as possible. B. Complications are uncommon, but please contact us if you have any signs or symptoms of: 1. wound infection (fever higher than 102.5 degrees F, redness, separation of wound, drainage, or increasing pain from the incision) 2. blood clots in legs (pain, swelling, redness and warmth in legs) 3. urinary tract infection (fever higher than 102.5 degrees F, burning upon urination or increased frequency of urination) 4. nerve problems (inability to walk on your toes or heels, numbness, loss of bowel or bladder control) 5. any other symptoms that concern you C. Please call the office at if you have any concerns or questions about your operation or recovery. D. No smoking! Smoking drastically decreases the chance of a solid fusion. E. Do not take any anti-inflammatory medications (Indocin, Advil, Motrin, Aspirin, Naprosyn, etc.) as these may inhibit the chance of a solid fusion. Tylenol is okay to take for pain. MANAGING PAIN AFTER SPINAL SURGERY 1. Narcotic medication is intended for short-term use and will be provided for surgical pain. Surgical pain usually lasts for a period of 4-6 weeks. Narcotic medication includes Percocet, Vicodin, Darvocet, Tylenol #3 or Lortab. 2. Longer-term pain is more appropriately treated with non-narcotic medication such as Tylenol ES. 3. Muscle spasm is not appropriately treated with narcotics. Muscle relaxers such as Soma, Flexeril or Skelaxin can be used along with Tylenol ES. 4. Remember that we all live with some "aches and pains". This is not unusual or uncommon after an injury or as we get older. a. Back pain is expected and may include muscle spasms for 4 to 6 weeks after surgery. The pain should gradually improve. If the pain worsens for no apparent reason, please contact the office. b. Intermittent leg pain may also be experienced and should not be concerned about unless it worsens for no apparent reason. If so, please contact the office. 5. We will provide appropriate medication within the normal guidelines of their prescribed use. We will also be very cautious and aware of potential abuse and extended duration of patients' medication needs. a. Pain medications are for your comfort and to assist with sleep and rest so that the tissue can heal. They are not provided in order to return to normal activity and should not be used through the day. To do so or worsening pain at night can result from ongoing tissue damage and development of tolerance to the prescribed medicine. 6. Please allow 2-3 days to process refills. Prescriptions will not be mailed but must be picked up at the office. FOLLOW UP VISIT: Keep your scheduled follow-up appointment. Any questions, please call the office at . Prescriptions: New tramadol 50 mg Tablet 50 mg PO Q4H PRN (Reason: Pain, Moderate) Qty: 20 RF: 0 oxycodone 5 mg Tablet 5 mg PO Q4H PRN (Reason: Pain, Severe) Qty: 20 RF: 0 Continued trazodone 50 mg Tablet 100 mg PO HS RF: 0 atorvastatin 10 mg Tablet 10 mg PO QAM RF: 0 clozapine 100 mg Tablet 300 mg PO HS RF: 0 melatonin 3 mg Tablet 3 mg PO HS RF: 0 omeprazole 40 mg Capsule,Delayed Release(Dr/Ec) 40 mg PO BID RF: 0 metoclopramide HCl 5 mg Tablet 5 mg PO TID RF: 0 baclofen 10 mg Tablet 15 mg PO BID RF: 0 paroxetine HCl 30 mg Tablet 30 mg PO QAM RF: 0 nortriptyline 10 mg Capsule 20 mg PO HS RF: 0 gabapentin 300 mg Capsule 300 mg PO HS RF: 0 hydroxyzine HCl 25 mg Tablet 50 mg PO TID RF: 0 gabapentin 100 mg Capsule 200 mg PO BID RF: 0 metoprolol succinate 25 mg Tablet Extended Release 24 Hr 25 mg PO QAM RF: 0 clozapine 50 mg Tablet 50 mg PO BID RF: 0 Zyrtec 10 mg Capsule 10 mg PO QAM RF: 0 Cbd Oil 1,500 mg PO QAM RF: 0 dicyclomine 10 mg Capsule 10 mg PO BID RF: 0 Stand-Alone Forms: [facility], Opioid Pain Management Discharge Orders: Discharge Order (Routine); Ordered 03/19/19 Ordered By: Timur Mathew Admission Data Admit Date/Time: 03/15/19 11:39 Attending Provider: Timur Mathew Admit Provider: Timur Mathew Primary Care Provider: Dangelo Felix Other Providers: Quinn Manzano Service: Surgical Services Other Interventions: Discharge Summary Assessment (RN) Last Done: 03/19/19 09:44
--- NOTE | 2019-03-19 11:27 | Hospitalist Progress Note ---
Date of Service March 19, 2019 Assessment & Plan (1) Spinal stenosis, lumbar region with neurogenic claudication: S/P lumbar decompression and fusion L5-S1 H/O spinal stenosis, lumbar region with neurogenic claudication POD #4 Continue Pain/wound management Activity/DVT Px as per Primary team Received steroid course for back pain Constipation: Resolved Continue bowel regimen Hyperlipidemia Continue statin Inappropriate sinus tachycardia Continue metoprolol Schizoaffective disorder, bipolar Continue Clozaril, Paxil, nortriptyline Insomnia Continue trazodone GERD Continue pantoprazole 40 mg twice daily DVT Px: As per primary team Disposition Per primary team Encourage to ambulate Advised to follow up with PCP and upon discharge Subjective Patient is seen and examined at bedside Doing much better today Back pain is controlled No new complaints Denies any chest pain, shortness of breath, dizziness Planned to be discharged home today Review of Systems Review of Systems: All systems reviewed & are unremarkable except as noted in HPI & below Physical Exam Physical Exam: Physical Exam: Vitals signs as noted above General Appearance:Moderately built and nourished, no apparent distress Head: normocephalic, Atraumatic Eyes: normal inspection, EOMI Neck: supple, Trachea midline Respiratory/Chest: Normal breath sounds, CTA Cardiovascular: S1, S2, No murmur Abdomen/GI:Soft, Non tender, Bowel sounds present Back:S/P surgery Extremities/Musculoskelatal:normal inspection Neurologic/Psych:AAOX3, grossly no focal neurological deficits Skin: normal color, warm Results & Data Vital Signs (Past 12 Hours) Vital Signs Temp Pulse Pulse Resp BP Pulse Ox 03/19/19 09:44 36.7 C 111 H 61 20 123/83 94 03/19/19 07:08 36.7 C 111 H 20 123/83 94 03/18/19 23:30 36.7 C 102 H 16 113/76 92
== END 2019-03-19 11:16 | disposition home or self-care (01) | DRG 455 ==
LOC: ASU 07:16 → 3E 11:39